=== PATIENT | female | born 1990 | race Caucasian/White ===

== ENCOUNTER 2023-04-19 05:49 | Emergency (ER) | payer OTHER, SELFPAY ==
[2023-04-19 05:50] VITALS: BMI 25.7
[2023-04-19 05:51] VITALS: BP 130/88
--- NOTE | 2023-04-19 07:05 | ED.GENMED ---
History of Present Illness
General
Chief Complaint: Abdominal Symptoms
Source: patient
Time Seen by Provider: 04/19/23 06:47
Travel History
Have you had any contact with someone who has COVID-19?: No
Do you have any symptoms of coronavirus? Fever > 100 degrees, chills, cough, shortness of breath, sore throat, loss of taste or smell, muscle aches, or headache?: No
History of Present Illness
History of Present Illness:
32-year-old female presents to the emergency room complaining nausea vomiting and diarrhea. Patient is 10 weeks . She has been experiencing nausea and vomiting throughout her but over the past 24 hours symptoms have become
significant. She has been unable to tolerate any oral intake. She has had decreased urination. No fever or chills. She does not have any medication at home to help with her symptoms.
Phy Exam
Physical Exam
Physical Exam:
General: Awake, Alert, Oriented X3. No acute distress.
Vitals: Tachycardic
Head: Atraumatic
Eyes: Pupils equal, EOMI
Throat: Airway intact, no exudates, dry mucosa
Neck: Trachea midline
Lungs: Clear and equal b/l
Heart: Regular rate, no murmurs
Abd: Soft, Nontender, No pulsatile mass
Neuro: Nonfocal
Skin: Warm, dry, no rash
Extremities: pulses equal b/l, no edema
Course
Orders/Labs/Results
Orders:
Orders
04/19/23 06:59
Urinalysis Reflex To Culture Urgent
Date Specimen was Collected: 04/19/23
Time Specimen was Collected: 07:10
0.9% Sodium Chloride 1000 ml [Nss] 1,000 ml IV BOLUS
Diphenhydramine [Benadryl] 25 mg IV NOW STA
Prochlorperazine [Compazine] 10 mg IV NOW STA
04/19/23 07:26
Amylase Urgent
Complete Blood Count/With Diff Urgent
Comprehensive Metabolic Panel Urgent
Lipase Urgent
04/19/23 08:22
Add On- LAB Urgent
Tests Added?: cmp
04/19/23 09:15
Mag Hydrox/Al Hydrox/Simeth [Maalox] 30 ml Phenobarb/Hyoscy/Atropine/Scop [] 10 ml PO NOW
Ondansetron Injectable [Zofran] 4 mg IV NOW STA
04/19/23 09:21
Mag Hydrox/Al Hydrox/Simeth [Maalox] 30 ml .ROUTE .STK-MED ONE
Phenobarb/Hyoscy/Atropine/Scop [] 10 ml .ROUTE .STK-MED ONE
Abnormal Lab Results
04/19/23
07:26
WBC 15.2 H 10^3/uL
(4.8-10.8)
MCH 31.4 H pg
(27.0-31.0)
Abs Immat Gran (auto) 0.1 H 10^3/uL
(0-0.05)
Absolute Neuts (auto) 14.0 H 10^3/uL
(1.4-6.5)
Absolute Lymphs (auto) 0.9 L 10^3/uL
(1.2-3.4)
Neutrophils % 91.6 H %
(42.2-75.2)
Lymphocytes % 5.6 L %
(20.5-51.1)
Potassium 3.4 L mmol/L
(3.5-5.1)
Carbon Dioxide 15 L mmol/L
(22-30)
Creatinine 0.4 L mg/dL
(0.6-1.0)
Glucose 173 H mg/dl
(70-99)
Calcium 10.5 H mg/dl
(8.4-10.2)
Albumin 5.1 H g/dl
(3.5-5.0)
04/19/23 07:26
04/19/23 07:26
Vital Signs
Initial and Last Documented VS:
Initial Vital Signs
Temp Pulse Resp BP Pulse Ox
97.4 F 100 22 130/88 100
04/19/23 05:51 04/19/23 05:51 04/19/23 05:51 04/19/23 05:51 04/19/23 05:51
Last Documented Vital Signs
Temp Pulse Resp BP Pulse Ox
97.4 F 73 19 93/59 97
04/19/23 05:51 04/19/23 10:00 04/19/23 10:00 04/19/23 10:00 04/19/23 10:00
MDM/Problems Addressed
Differential Diagnosis Includes:
Dehydration, electrolyte abnormality, cholecystitis, hyperemesis
MDM/Problems Addressed:
Patient has mildly elevated white count which is nonspecific. Moderately low bicarb. Patient feeling better after IV fluids and antiemetics. Patient will be discharged with prescription for antiemetics. Follow-up with [employer] [employer].
*Pulse Oximetry
Patient hypoxic: no
*Critical Care Note
Total Time (30-74mins, 75-104mins- exclusive of procedures): Not Applicable
Patient Management
Social determinants of health affecting care: Strong social support
ED Attending Note
-
Portions of this chart may have been created with voice recognition software.� Occasional wrong word or��sound alike� substitutions may have occurred due to the inherent limitations of voice recognition software.
Discharge Plan
Departure
Patient Disposition: Home (Routine Discharge)
Date of Disposition: 04/19/23
Time of Disposition: 10:23
Patient with high blood pressure during this ER visit?: No
Condition: Good
Discharge Problem:
Hyperemesis gravidarum, Dehydration
Instructions: Hyperemesis Gravidarum (DC)
Prescriptions:
New
prochlorperazine maleate [Compazine] 10 mg tablet
10 mg PO Q8H PRN (Reason: nausea and vomiting) Qty: 20 0RF
Referrals:
Shannan Fernandez CRNP [Family Provider] -
Rupa Kaiser MD [Active] -
Interventions
Interventions:
*Risk Screen - Suicide Last Done: 04/19/23 05:51
*General Assessment Last Done: 04/19/23 07:31
*Neglect/Abuse Screening Last Done: 04/19/23 05:51
*ED COVID-19 Vaccine History Last Done: 04/19/23 07:31
*Nursing Disposition Last Done: 04/19/23 10:37
WS-Xuyqoh-Hxcdmotdty Assessment Last Done: 04/19/23 08:47
ED-Female Genitourinary Assessment Last Done: 04/19/23 08:47
Discharge Date and Time
Discharge Date/Time: 04/19/23 10:38
[2023-04-19 07:22] VITALS: BP 115/77
[2023-04-19] MEDS: COMPAZINE 10 MG IV (07:28)
[2023-04-19] MEDS: NSS 1000 IV (07:29)
[2023-04-19] MEDS: BENADRYL 25 MG IV (07:29)
[2023-04-19 07:58] LABS: % Basophils 0.2 % (0-2); % Immature Granulocytes 0.5 % (0-0.5); % Lymphocytes 5.6 % (20.5-51.1); % Monocytes 2.1 % (1.7-9.3); % Neutrophils 91.6 % (42.2-75.2); Absolute Immature Granulocytes 0.1 10^3/uL (0-0.05); Absolute Lymphocytes 0.9 10^3/uL (1.2-3.4); Absolute Monocytes 0.3 10^3/uL (0.1-0.6); Hematocrit 42.1 % (37.0-47.0); Hemoglobin 15.4 g/dL (12.0-16.0); Mean Corp Hgb Conc. 36.6 g/dL (33.0-37.0); Mean Corpuscular Hgb 31.4 pg (27.0-31.0); Mean Corpuscular Volume 85.7 fL (81.0-99.0); Mean Platelet Volume 9.3 fL (7.4-10.4); Nucleated Red Blood Cells % 0 %; Platelet Count 306 10^3/uL (130-400); Red Blood Cell Count 4.91 10^6/uL (4.20-5.40); Red Cell Dist. Width 12.1 % (11.5-14.5); White Blood Cell Count 15.2 10^3/uL (4.8-10.8)
[2023-04-19 08:00] VITALS: BP 107/70
[2023-04-19 08:12] LABS: Amylase 44 U/L (30-110); Lipase 41 U/L (23-300)
[2023-04-19 08:42] LABS: ALT (SGPT) 30 U/L (0-35); AST (SGOT) 30 U/L (14-36); Albumin 5.1 g/dl (3.5-5.0); Alkaline Phosphatase 65 U/L (38-126); Blood Urea Nitrogen 12 mg/dl (7-17); Calcium 10.5 mg/dl (8.4-10.2); Carbon Dioxide 15 mmol/L (22-30); Chloride 105 mmol/L (98-107); Estimated Creatinine Clearance 105 ml/min; Glucose 173 mg/dl (70-99); Potassium 3.4 mmol/L (3.5-5.1); Sodium 137 mmol/L (135-145); Total Bilirubin 0.8 mg/dl (0.2-1.3); Total Protein 8.1 g/dl (6.3-8.2); eGFR > 60.00
[2023-04-19 09:00] VITALS: BP 103/70
[2023-04-19] MEDS: MAALOX 40 PO (09:32)
[2023-04-19] MEDS: ZOFRAN 4 MG IV (09:34)
[2023-04-19 10:00] VITALS: BP 93/59
== END 2023-04-19 10:38 | disposition home or self-care (01) ==
LOC: EMR 05:49
PROVIDERS: EMERGENCY PHYSICIAN Emergency Medicine; FAMILY PHYSICIAN Nurse Practitioner Adult Health
DX: O21.1 Hyperemesis gravidarum with metabolic disturbance (principal); E86.0 Dehydration; O99.891 Other specified diseases and conditions complicating pregnancy; O99.281 Endocrine, nutritional and metabolic diseases complicating pregnancy, first trimester; Z3A.10 10 weeks gestation of pregnancy
CPT/HCPCS: 99284; 96374; 96375 ×2; 96361; 80053; 82150; 83690; 85025

== ENCOUNTER 2023-05-23 19:31 | Emergency (ER) | payer OTHER, SELFPAY ==
[2023-05-23 19:40] VITALS: BP 122/80
[2023-05-23 20:02] LABS: Hematocrit 38.9 % (37.0-47.0); Hemoglobin 14.1 g/dL (12.0-16.0); Mean Corp Hgb Conc. 36.2 g/dL (33.0-37.0); Mean Corpuscular Volume 85.5 fL (81.0-99.0); Platelet Count 268 10^3/uL (130-400); Red Blood Cell Count 4.55 10^6/uL (4.20-5.40); Red Cell Dist. Width 12.4 % (11.5-14.5); White Blood Cell Count 16.8 10^3/uL (4.8-10.8)
[2023-05-23 20:26] LABS: Blood Urea Nitrogen 9 mg/dl (7-17); Carbon Dioxide 17 mmol/L (22-30); Chloride 104 mmol/L (98-107); Glucose 141 mg/dl (70-99); Potassium 3.7 mmol/L (3.5-5.1); Sodium 135 mmol/L (135-145); eGFR > 60.00
[2023-05-23 21:09] VITALS: BMI 27.0
[2023-05-23] MEDS: ZOFRAN 4 MG IV ×2 (21:13→23:56)
[2023-05-23] MEDS: NSS 1000 IV (21:14)
--- NOTE | 2023-05-23 21:27 | ED.GENMED ---
History of Present Illness
<Keenan Foreman MD - Last Filed: 05/23/23 23:58>
General
Chief Complaint: Abdominal Symptoms
Source: patient and spouse
Exam Limitations: none
Time Seen by Provider: 05/23/23 21:04
Nursing documentation reviewed up to this point in time: agreed with
Travel History
Have you had any contact with someone who has COVID-19?: No
Do you have any symptoms of coronavirus? Fever > 100 degrees, chills, cough, shortness of breath, sore throat, loss of taste or smell, muscle aches, or headache?: No
History of Present Illness
History of Present Illness:
Patient is G1, P0, approximately 14 weeks , presents ED secondary to recurrent continual nausea and vomiting since this morning. Patient unfortunately has had multiple similar episodes requiring evaluation and treatment in ED recently.
Denies fever or chills. Denies chest pain or shortness of breath. Denies abdominal pain. Denies diarrhea. Denies sick contact. Denies recent travel. Patient reports having had normal ultrasound 2 weeks ago.
Review of Systems
<Keenan Foreman MD - Last Filed: 05/23/23 23:58>
Review of Systems
Allergies reviewed?: Yes
All Other Systems: ROS reviewed and negative except as documented in HPI and ROS
Constitutional: Reports no symptoms
EENT: Reports no symptoms
Respiratory: Reports no symptoms
Cardiac: Reports no symptoms
ABD/GI: Reports nausea and vomiting; Denies abdominal pain or diarrhea
: Reports no symptoms
Musculoskeletal: Reports no symptoms
Skin: Reports no symptoms
Neurological: Reports no symptoms
Phy Exam
<Keenan Foreman MD - Last Filed: 05/23/23 23:58>
Physical Exam
Physical Exam:
Physical Exam
General: mild distress, not acutely ill. afebrile
Head: nc/at. eomi
Neck: supple. normal range of motion.
Heart: s1/s2 regular rate and rhythm, no murmur. equal radial pulses.
Lungs: no acute respiratory distress. clear bilaterally
Abdomen: normal bowel sounds. not tender.
Neuro: alert and oriented. no focal neurological deficits
Skin: no rash
Psychiatric: well kept. interactive and cooperative
Extremities: no edema. no calf tenderness.
Course
<Keenan Foreman MD - Last Filed: 05/23/23 23:58>
Orders/Labs/Results
Orders:
Orders
05/23/23 19:48
Basic Metabolic Panel Urgent
Complete Blood Count/No Diff Urgent
HCG,SERUM [Beta HCG Quantitative] Urgent
Is this a screen?: No
05/23/23 21:07
0.9% Sodium Chloride 1000 ml [Nss] 1,000 ml IV BOLUS
Ondansetron Injectable [Zofran] 4 mg IV NOW STA
05/23/23 23:22
0.9% Sodium Chloride 500 ml [Nss] 500 ml IV BOLUS
Ondansetron Injectable [Zofran] 4 mg IV NOW STA
05/24/23 00:01
Mag Hydrox/Al Hydrox/Simeth [Maalox] 30 ml .ROUTE .STK-MED ONE
05/24/23 00:09
Mag Hydrox/Al Hydrox/Simeth [Maalox] 30 ml PO NOW STA
05/24/23 01:12
Diphenhydramine [Benadryl] 25 mg IV NOW STA
Metoclopramide [Reglan] 10 mg IV NOW STA
Abnormal Lab Results
05/23/23
19:48
WBC 16.8 H 10^3/uL
(4.8-10.8)
Carbon Dioxide 17 L mmol/L
(22-30)
Creatinine 0.4 L mg/dL
(0.6-1.0)
Glucose 141 H mg/dl
(70-99)
05/23/23 19:48
05/23/23 19:48
Vital Signs
Initial and Last Documented VS:
Initial Vital Signs
Temp Pulse Resp BP Pulse Ox
99.2 F 104 22 122/80 99
05/23/23 19:40 05/23/23 19:40 05/23/23 19:40 05/23/23 19:40 05/23/23 19:40
Last Documented Vital Signs
Temp Pulse Resp BP Pulse Ox
99.2 F 90 17 107/58 96
05/23/23 19:40 05/24/23 02:40 05/24/23 02:40 05/24/23 02:03 05/24/23 02:45
<Kevin Peralta, - Last Filed: 05/24/23 05:07>
Orders/Labs/Results
Orders:
Orders
05/23/23 19:48
Basic Metabolic Panel Urgent
Complete Blood Count/No Diff Urgent
HCG,SERUM [Beta HCG Quantitative] Urgent
Is this a screen?: No
05/23/23 21:07
0.9% Sodium Chloride 1000 ml [Nss] 1,000 ml IV BOLUS
Ondansetron Injectable [Zofran] 4 mg IV NOW STA
05/23/23 23:22
0.9% Sodium Chloride 500 ml [Nss] 500 ml IV BOLUS
Ondansetron Injectable [Zofran] 4 mg IV NOW STA
05/24/23 00:01
Mag Hydrox/Al Hydrox/Simeth [Maalox] 30 ml .ROUTE .STK-MED ONE
05/24/23 00:09
Mag Hydrox/Al Hydrox/Simeth [Maalox] 30 ml PO NOW STA
05/24/23 01:12
Diphenhydramine [Benadryl] 25 mg IV NOW STA
Metoclopramide [Reglan] 10 mg IV NOW STA
Abnormal Lab Results
05/23/23
19:48
WBC 16.8 H 10^3/uL
(4.8-10.8)
Carbon Dioxide 17 L mmol/L
(22-30)
Creatinine 0.4 L mg/dL
(0.6-1.0)
Glucose 141 H mg/dl
(70-99)
05/23/23 19:48
05/23/23 19:48
Vital Signs
Initial and Last Documented VS:
Initial Vital Signs
Temp Pulse Resp BP Pulse Ox
99.2 F 104 22 122/80 99
05/23/23 19:40 05/23/23 19:40 05/23/23 19:40 05/23/23 19:40 05/23/23 19:40
Last Documented Vital Signs
Temp Pulse Resp BP Pulse Ox
99.2 F 90 17 107/58 96
05/23/23 19:40 05/24/23 02:40 05/24/23 02:40 05/24/23 02:03 05/24/23 02:45
<Kevin Peralta DO - Last Filed: 05/24/23 05:07>
*Critical Care Note
Total Time (30-74mins, 75-104mins- exclusive of procedures): Not Applicable
<Kevin Peralta DO - Last Filed: 05/24/23 05:07>
Update Note
Update Note:
Patient received in signout. 32-year-old with hyperemesis gravidarum. On reassessment the patient was still nauseous but after Reglan now feels much better. Okay for discharge. Will prescribe Reglan for home but advise close follow-up.
ED Attending Note
<Keenan Foreman MD - Last Filed: 05/23/23 23:58>
-
Portions of this chart may have been created with voice recognition software.� Occasional wrong word or��sound alike� substitutions may have occurred due to the inherent limitations of voice recognition software.
Discharge Plan
Departure
Patient Disposition: Home (Routine Discharge)
Date of Disposition: 05/24/23
Time of Disposition: 02:51
Patient with high blood pressure during this ER visit?: No
Discharge Problem:
Hyperemesis gravidarum
Instructions: Hyperemesis Gravidarum (DC)
Prescriptions:
New
metoclopramide HCl [Reglan] 10 mg tablet
10 mg PO Q8HPRN PRN (Reason: nausea and vomiting) Qty: 14 0RF
No Action
prochlorperazine maleate [Compazine] 10 mg tablet
10 mg PO Q8H PRN (Reason: nausea and vomiting) Qty: 20 0RF
Referrals:
NONE,* [Active] -
Activity Restrictions/Additional Instructions:
Return to immediately for intractable vomiting, abdominal pain, vaginal bleeding, fevers or any other concerns. Please see your doctor in the next 3 to 4 days for follow-up and reevaluation.
Interventions
Interventions:
*Risk Screen - Suicide Last Done: 05/23/23 19:40
*General Assessment Last Done: 05/23/23 21:09
*Neglect/Abuse Screening Last Done: 05/23/23 19:40
ED- Fall Risk Assessment Last Done: 05/23/23 21:17
*ED COVID-19 Vaccine History Last Done: 05/23/23 21:09
*Nursing Disposition Last Done: 05/24/23 03:00
LP-Aszkbh-Cihdqungxt Assessment Last Done: 05/23/23 23:55
ED-Female Genitourinary Assessment Last Done: 05/23/23 21:17
Discharge Date and Time
Discharge Date/Time: 05/24/23 03:00
[2023-05-23 22:00] VITALS: BP 117/79
[2023-05-23 23:00] VITALS: BP 121/60
[2023-05-23] MEDS: NSS 500 IV (23:55)
[2023-05-24] VITALS: BP 123/79
[2023-05-24] MEDS: MAALOX 30 ML PO (00:09)
[2023-05-24 01:00] VITALS: BP 124/93
[2023-05-24] MEDS: REGLAN 10 MG IV (01:30)
[2023-05-24] MEDS: BENADRYL 25 MG IV (01:30)
[2023-05-24 02:03] VITALS: BP 107/58
== END 2023-05-24 03:00 | disposition home or self-care (01) ==
LOC: EMR 19:31
PROVIDERS: Emergency Medicine; EMERGENCY PHYSICIAN Emergency Medicine; FAMILY PHYSICIAN Nurse Practitioner Adult Health
DX: O21.0 Mild hyperemesis gravidarum (principal); Z3A.14 14 weeks gestation of pregnancy
CPT/HCPCS: 99284; 96374; 96375 ×2; 96361 ×2; 96376; 80048; 84702; 85027

== ENCOUNTER 2023-06-15 19:38 | Emergency (ER) | payer OTHER, SELFPAY ==
[2023-06-15 19:40] VITALS: BP 137/88
--- NOTE | 2023-06-15 20:17 | ED.GENMED ---
History of Present Illness
General
Chief Complaint: Abdominal Symptoms
Source: patient, records and spouse
Exam Limitations: none
Time Seen by Provider: 06/15/23 20:12
Nursing documentation reviewed up to this point in time: agreed with
Travel History
Have you had any contact with someone who has COVID-19?: No
Do you have any symptoms of coronavirus? Fever > 100 degrees, chills, cough, shortness of breath, sore throat, loss of taste or smell, muscle aches, or headache?: No
History of Present Illness
History of Present Illness:
Patient is a 32-year-old 1 para 0 female with an estimated date of confinement of November 14 who presents with nausea and vomiting. Patient is intermittently since the beginning of her and again started this morning. Patient has
been unable to keep anything down and has had multiple episodes of emesis. Patient denies any pain. Patient denies fever, chills, nasal congestion, sore throat or cough. Patient denies any abdominal pain or diarrhea. Patient denies any vaginal
bleeding or vaginal fluid. Patient did take multiple medications without improvement.
Past History
Past History
ED Past Medical History: Other (Hyperemesis gravidarum)
Social History
Tobacco: Non-smoker
Review of Systems
Review of Systems
All Other Systems: ROS reviewed and negative except as documented in HPI and ROS
Constitutional: Reports fatigue; Denies fever or chills
EENT: Reports no symptoms
Respiratory: Reports no symptoms
Cardiac: Reports no symptoms
ABD/GI: Reports nausea, vomiting and anorexia; Denies abdominal pain or diarrhea
: Reports no symptoms
Musculoskeletal: Reports no symptoms
Skin: Reports no symptoms
Neurological: Reports no symptoms
Hematologic/Lymphatic: Reports no symptoms
Phy Exam
Physical Exam
Physical Exam:
Physical Exam
General: mild to moderate distress, alert and appropriate, well nourished, dry mucous membranes
HENT: Normocephalic, supple with no lymphadenopathy, no thyromegaly
Eyes: Clear sclera, conjuctiva without injection
Heart: Regular rhythm and tachycardic rate. No S3, S4. No murmur.
Lungs: No respiratory distress, no stridor, lung sounds clear and equal bilaterallyr
Abdomen: Soft, nontender, no organomegaly, no CVA tenderness, BS good
Neuro: Alert and oriented x 3, CN II - XII intact, no motor focality, no cerebellar dysfunction
Skin: no rash
Psychiatric: well kept. interactive and cooperative
Extremities: No edema, cyanosis, tenderness
Scores
Heart Failure Risk
Heart Failure Risk Score: Not Applicable
Heart Score for Chest Pain Patients
STEMI patient?: Not applicable
Withdrawal Assessment of Alcohol
Withdrawal Assessment Completed?: Not applicable
Course
Orders/Labs/Results
Orders:
Orders
06/15/23 20:16
Ondansetron Injectable [Zofran] 4 mg IV NOW STA
06/15/23 20:17
Lactated Ringers [Lr] 1,000 ml IV BOLUS
06/15/23 20:37
Complete Blood Count/With Diff Urgent
Comprehensive Metabolic Panel Urgent
06/15/23 20:51
Urinalysis Reflex To Culture Urgent
Date Specimen was Collected: 06/15/23
Time Specimen was Collected: 20:26
Urine Microscopic Reflex Cult Urgent
06/15/23 21:24
Diphenhydramine [Benadryl] 12.5 mg IV NOW STA
Prochlorperazine [Compazine] 10 mg IV NOW STA
06/15/23 21:42
Lactated Ringers [Lr] 1,000 ml IV BOLUS
06/15/23 22:35
Mag Hydrox/Al Hydrox/Simeth [Maalox] 30 ml PO NOW STA
Abnormal Lab Results
06/15/23 06/15/23
20:37 20:51
WBC 17.8 H 10^3/uL
(4.8-10.8)
Hct 36.3 L %
(37.0-47.0)
MCH 31.2 H pg
(27.0-31.0)
MCHC 37.5 H g/dL
(33.0-37.0)
Abs Immat Gran (auto) 0.1 H 10^3/uL
(0-0.05)
Absolute Neuts (auto) 16.0 H 10^3/uL
(1.4-6.5)
Immature Gran % 0.7 H %
(0-0.5)
Neutrophils % 89.7 H %
(42.2-75.2)
Lymphocytes % 7.1 L %
(20.5-51.1)
Carbon Dioxide 17 L mmol/L
(22-30)
Creatinine 0.4 L mg/dL
(0.6-1.0)
Glucose 149 H mg/dl
(70-99)
Calcium 10.6 H mg/dl
(8.4-10.2)
Urine Ketones 3+ A
(Negative)
Leukocyte Esterase Rfl Trace A
(Negative)
Urine Glucose Trace A
(Negative)
06/15/23 20:37
06/15/23 20:37
Vital Signs
Initial and Last Documented VS:
Initial Vital Signs
Temp Pulse Resp BP Pulse Ox
98.7 F 119 20 137/88 97
06/15/23 19:40 06/15/23 19:40 06/15/23 19:40 06/15/23 19:40 06/15/23 19:40
Last Documented Vital Signs
Temp Pulse Resp BP Pulse Ox
98.7 F 89 18 125/83 99
06/15/23 19:40 06/15/23 23:15 06/15/23 23:15 06/15/23 23:15 06/15/23 23:15
*Radiology
Radiology exam reviewed: other (na)
*Pulse Oximetry
Patient hypoxic: no
*EKG
Interpreted by ED Provider?: NA
*Chiropractic Neurologist Interpretation
Rate: Chiropractic Neurologist- N/A
*Critical Care Note
Total Time (30-74mins, 75-104mins- exclusive of procedures): Not Applicable
Update Note
Update Note:
Patient able to take by mouth and has had 2 L of fluid. Patient be given prescription for Phenergan suppositories.
ED Attending Note
-
Portions of this chart may have been created with voice recognition software.� Occasional wrong word or��sound alike� substitutions may have occurred due to the inherent limitations of voice recognition software.
Discharge Plan
Departure
Patient Disposition: Home (Routine Discharge)
Date of Disposition: 06/15/23
Time of Disposition: 23:17
Patient with high blood pressure during this ER visit?: No
Condition: Fair
Covid-19: Not Applicable
Discharge Problem:
Hyperemesis gravidarum, Acute dehydration
Instructions: Hyperemesis Gravidarum (DC), [place] Diet, Nausea and Vomiting, Adult (DC)
Prescriptions:
New
promethazine 25 mg suppository
25 mg NV Q6H PRN (Reason: nausea and vomiting) Qty: 12 0RF
No Action
prochlorperazine maleate [Compazine] 10 mg tablet
10 mg PO Q8H PRN (Reason: nausea and vomiting) Qty: 20 0RF
metoclopramide HCl [Reglan] 10 mg tablet
10 mg PO Q8HPRN PRN (Reason: nausea and vomiting) Qty: 14 0RF
Referrals:
Shannan Fernandez CRNP [Family Provider] -
Interventions
Interventions:
*Risk Screen - Suicide Last Done: 06/15/23 19:40
*General Assessment Last Done: 06/15/23 19:40
*Neglect/Abuse Screening Last Done: 06/15/23 20:36
ED- Fall Risk Assessment Last Done: 06/15/23 20:36
*ED COVID-19 Vaccine History Last Done: 06/15/23 19:43
EX-Qrgiet-Mhngkdksvp Assessment Last Done: 06/15/23 20:36
Discharge Date and Time
Print Language: CITIZEN OF [place]
[2023-06-15 20:35] VITALS: BMI 27.3
[2023-06-15] MEDS: LR 1000 IV ×2 (20:37→21:54)
[2023-06-15] MEDS: ZOFRAN 4 MG IV (20:37)
[2023-06-15 20:47] LABS: % Basophils 0.2 % (0-2); % Immature Granulocytes 0.7 % (0-0.5); % Lymphocytes 7.1 % (20.5-51.1); % Monocytes 2.3 % (1.7-9.3); % Neutrophils 89.7 % (42.2-75.2); Absolute Immature Granulocytes 0.1 10^3/uL (0-0.05); Absolute Lymphocytes 1.3 10^3/uL (1.2-3.4); Absolute Monocytes 0.4 10^3/uL (0.1-0.6); Hematocrit 36.3 % (37.0-47.0); Hemoglobin 13.6 g/dL (12.0-16.0); Mean Corp Hgb Conc. 37.5 g/dL (33.0-37.0); Mean Corpuscular Hgb 31.2 pg (27.0-31.0); Mean Corpuscular Volume 83.3 fL (81.0-99.0); Mean Platelet Volume 8.9 fL (7.4-10.4); Nucleated Red Blood Cells % 0 %; Platelet Count 281 10^3/uL (130-400); Red Blood Cell Count 4.36 10^6/uL (4.20-5.40); Red Cell Dist. Width 12.4 % (11.5-14.5); White Blood Cell Count 17.8 10^3/uL (4.8-10.8)
[2023-06-15 21:01] LABS: ALT (SGPT) 27 U/L (0-35); AST (SGOT) 29 U/L (14-36); Albumin 4.8 g/dl (3.5-5.0); Alkaline Phosphatase 58 U/L (38-126); Blood Urea Nitrogen 8 mg/dl (7-17); Calcium 10.6 mg/dl (8.4-10.2); Carbon Dioxide 17 mmol/L (22-30); Chloride 101 mmol/L (98-107); Estimated Creatinine Clearance 120 ml/min; Glucose 149 mg/dl (70-99); Potassium 3.7 mmol/L (3.5-5.1); Sodium 136 mmol/L (135-145); Total Bilirubin 0.6 mg/dl (0.2-1.3); Total Protein 7.7 g/dl (6.3-8.2); eGFR > 60.00
[2023-06-15 21:24] LABS: Urine Albumin Trace (Neg - Trace); Urine Bilirubin Negative (Negative); Urine Character Clear (Clear); Urine Color Yellow; Urine Glucose Trace (Negative); Urine Ketone 3+ (Negative); Urine Leukocyte Trace (Negative); Urine Nitrite Negative (Negative); Urine Occult Blood Negative (Negative); Urine Specific Gravity 1.025 (<1.030); Urine Urobilinogen Negative (Neg - 1+)
[2023-06-15] MEDS: BENADRYL 12.5 MG IV (21:30)
[2023-06-15] MEDS: COMPAZINE 10 MG IV (21:34)
[2023-06-15 21:38] LABS: Urine Squamous Cell >30 /LPF (Few)
[2023-06-15 21:39] LABS: Urine Red Blood Cell None Seen /HPF (0-2); Urine White Cell 0-2 /HPF (0-5)
[2023-06-15 21:43] VITALS: BP 122/77
[2023-06-15] MEDS: MAALOX 30 ML PO (22:52)
[2023-06-15 23:15] VITALS: BP 125/83
== END 2023-06-15 23:23 | disposition home or self-care (01) ==
LOC: EMR 19:38
PROVIDERS: EMERGENCY PHYSICIAN Emergency Medicine; FAMILY PHYSICIAN Nurse Practitioner Adult Health
DX: O21.0 Mild hyperemesis gravidarum (principal); O99.891 Other specified diseases and conditions complicating pregnancy; E86.0 Dehydration
CPT/HCPCS: 99283; 96374; 96375; 96361; 80053; 81003; 81015; 85025

== ENCOUNTER 2023-06-27 06:01 | Emergency (ER) | payer OTHER, SELFPAY ==
[2023-06-27 06:03] VITALS: BP 140/96
[2023-06-27 07:14] VITALS: BP 128/90
[2023-06-27 07:15] VITALS: BP 128/91
[2023-06-27] MEDS: NSS 1000 IV ×2 (07:21→12:07)
[2023-06-27] MEDS: REGLAN 10 MG IV (07:23)
[2023-06-27] MEDS: BENADRYL 25 MG IV (07:23)
[2023-06-27 07:54] LABS: % Basophils 0.1 % (0-2); % Eosinophils 0.1 % (0-6); % Immature Granulocytes 0.5 % (0-0.5); % Monocytes 1.1 % (1.7-9.3); % Neutrophils 91.2 % (42.2-75.2); Absolute Immature Granulocytes 0.1 10^3/uL (0-0.05); Absolute Monocytes 0.2 10^3/uL (0.1-0.6); Absolute Neutrophils 13.3 10^3/uL (1.4-6.5); Hematocrit 39.7 % (37.0-47.0); Hemoglobin 14.5 g/dL (12.0-16.0); Mean Corp Hgb Conc. 36.5 g/dL (33.0-37.0); Mean Corpuscular Hgb 31.5 pg (27.0-31.0); Mean Corpuscular Volume 86.1 fL (81.0-99.0); Mean Platelet Volume 9.2 fL (7.4-10.4); Nucleated Red Blood Cells % 0 %; Platelet Count 285 10^3/uL (130-400); Red Blood Cell Count 4.61 10^6/uL (4.20-5.40); Red Cell Dist. Width 12.4 % (11.5-14.5); White Blood Cell Count 14.6 10^3/uL (4.8-10.8)
[2023-06-27 08:13] LABS: ALT (SGPT) 41 U/L (0-35); AST (SGOT) 29 U/L (14-36); Alkaline Phosphatase 61 U/L (38-126); Blood Urea Nitrogen 9 mg/dl (7-17); Calcium 10.4 mg/dl (8.4-10.2); Carbon Dioxide 14 mmol/L (22-30); Chloride 102 mmol/L (98-107); Glucose 169 mg/dl (70-99); Potassium 3.3 mmol/L (3.5-5.1); Sodium 133 mmol/L (135-145); Total Bilirubin 0.8 mg/dl (0.2-1.3); Total Protein 7.9 g/dl (6.3-8.2); eGFR > 60.00
[2023-06-27] MEDS: CARAFATE SUSPENSION 1 GM PO (08:28)
[2023-06-27 08:36] LABS: TSH Reflex To Free T4 0.21 uIU/ml (0.47-4.68)
[2023-06-27 09:05] LABS: Free T4 1.27 ng/dl (0.78-2.19)
[2023-06-27 09:33] LABS: Urine Albumin Trace (Neg - Trace); Urine Bilirubin Negative (Negative); Urine Character Clear (Clear); Urine Color Yellow; Urine Glucose 3+ (Negative); Urine Ketone 3+ (Negative); Urine Leukocyte Negative (Negative); Urine Nitrite Negative (Negative); Urine Occult Blood Negative (Negative); Urine Urobilinogen Negative (Neg - 1+)
[2023-06-27] MEDS: PHENERGAN 25 MG RECTAL (12:06)
--- NOTE | 2023-06-27 13:05 | ED.GENMED ---
History of Present Illness
General
Chief Complaint: Chest Pain
Source: patient and significant other
Exam Limitations: none
Time Seen by Provider: 06/27/23 06:31
Travel History
Have you had any contact with someone who has COVID-19?: No
Do you have any symptoms of coronavirus? Fever > 100 degrees, chills, cough, shortness of breath, sore throat, loss of taste or smell, muscle aches, or headache?: No
History of Present Illness
History of Present Illness:
32-year-old female who is 20 weeks , G1, P0 who presents with persistent vomiting. Also feels like she is having some tightness in her chest and feeling a bit of anxiety in her chest. Patient states she is not sure if it is a little bit of
anxiety or is from the vomiting. Sent by OB for evaluation. The patient has had little bit of blood occasionally in the vomitus. no abd pain. no vaginal bleeding. no fevers. no sob. no pleuritic pain.
Past History
Past History
ED Past Medical History: Other (Hyperemesis gravidarum)
Social History
Tobacco: Non-smoker
Phy Exam
Physical Exam
Physical Exam:
CONSTITUTIONAL Patient alert and oriented to person, place and time. Well-appearing. Vital signs reviewed.
HEAD atraumatic, normocephalic.
EYES eyelids normal to inspection, Pupils equally round and reactive to light, Extraocular muscles intact, Conjunctiva normal, Sclera normal.
NECK normal range of motion, Trachea midline, no jugular venous distention.
RESPIRATORY CHEST No respiratory distress noted, Chest expansion equal, Bilateral breath sounds clear.
CARDIOVASCULAR regular rate and rhythm, Heart sounds normal.
ABDOMEN abdomen nontender, Bowel sounds normal. Gravid uterus at the umbilicus
BACK normal inspection, no obvious deformities
UPPER EXTREMITY range of motion normal, Motor strength normal, no cyanosis, no edema.
LOWER EXTREMITY range of motion normal, Motor strength normal, no cyanosis, no edema.
NEURO Speech normal, No focal motor deficits, [place] coma scale 15, Memory normal, Cranial Nerves intact to screening exam.
SKIN skin warm, dry, and normal in color.
PSYCHIATRIC patient oriented to person place and time, Normal affect.
Scores
Heart Score for Chest Pain Patients
STEMI patient?: Not applicable
Course
Orders/Labs/Results
Orders:
Orders
06/27/23 06:06
Electrocardiogram (*1) Urgent
Reason for Study: Chest Pain
EKG- Treatment ONCE
06/27/23 06:57
Diphenhydramine [Benadryl] 25 mg IV NOW STA
Metoclopramide [Reglan] 10 mg IV NOW STA
06/27/23 06:58
Sucralfate Suspension [Carafate Suspension] 1 gm PO NOW STA
06/27/23 07:20
CMP [Comprehensive Metabolic Panel] Urgent
Complete Blood Count/With Diff Urgent
Free T4 Urgent
TSH Reflex To Free T4 Urgent
06/27/23 07:21
0.9% Sodium Chloride 1000 ml [Nss] 1,000 ml IV BOLUS
06/27/23 09:26
Urinalysis Reflex To Culture Urgent
Date Specimen was Collected: 06/27/23
Time Specimen was Collected: 09:23
06/27/23 11:12
0.9% Sodium Chloride 1000 ml [Nss] 1,000 ml IV BOLUS
Promethazine [Phenergan] 25 mg RECTAL NOW STA
06/27/23 12:24
Calcium Carbonate Ex [Tums Ex (Extra Strength) Chewable] 5 tablet PO NOW STA
06/27/23 12:37
Potassium Chloride 10% Elixir [KCl Elixir] 40 meq PO NOW STA
Abnormal Lab Results
06/27/23 06/27/23
07:20 09:26
WBC 14.6 H 10^3/uL
(4.8-10.8)
MCH 31.5 H pg
(27.0-31.0)
Abs Immat Gran (auto) 0.1 H 10^3/uL
(0-0.05)
Absolute Neuts (auto) 13.3 H 10^3/uL
(1.4-6.5)
Absolute Lymphs (auto) 1.0 L 10^3/uL
(1.2-3.4)
Neutrophils % 91.2 H %
(42.2-75.2)
Lymphocytes % 7.0 L %
(20.5-51.1)
Monocytes % 1.1 L %
(1.7-9.3)
Sodium 133 L mmol/L
(135-145)
Potassium 3.3 L mmol/L
(3.5-5.1)
Carbon Dioxide 14 L* mmol/L
(22-30)
Creatinine 0.4 L mg/dL
(0.6-1.0)
Glucose 169 H mg/dl
(70-99)
Calcium 10.4 H mg/dl
(8.4-10.2)
ALT 41 H U/L
(0-35)
TSH (Reflex) 0.21 L uIU/ml
(0.47-4.68)
Urine Ketones 3+ A
(Negative)
Urine Glucose 3+ A
(Negative)
06/27/23 07:20
06/27/23 07:20
Vital Signs
Initial and Last Documented VS:
Initial Vital Signs
Temp Pulse Resp BP Pulse Ox
98 F 112 20 140/96 98
06/27/23 06:03 06/27/23 06:03 06/27/23 06:03 06/27/23 06:03 06/27/23 06:03
Last Documented Vital Signs
Temp Pulse Resp BP Pulse Ox
98 F 92 23 128/91 99
06/27/23 06:03 06/27/23 08:15 06/27/23 08:15 06/27/23 07:15 06/27/23 08:15
MDM/Problems Addressed
MDM/Problems Addressed:
Hyperemesis gravidarum, acidosis, esophagitis
*Pulse Oximetry
Patient hypoxic: no
*EKG
Interpreted by ED Provider?: Yes
Interpretation: normal
Rate: normal
Rhythm: sinus
QRS Pattern: normal QRS
*Home Based Assistant Interpretation
Rate: normal
Interpretation: normal
Rhythm: sinus
*Critical Care Note
Total Time (30-74mins, 75-104mins- exclusive of procedures): Not Applicable
Data Reviewed
Source: patient
Prescriptions/Medications Considered But Not Given:
Consider Zofran but patient states it does not work.
Further Testing Considered But Not Given:
Considered PE study but do not suspect pulmonary embolism.
Patient Management
Discussion with other providers: Field Clerk (Case discussed with Dr. Kaiser)
Escalation/DeEscalation of care consider admission/obs:
Patient seen by Dr. Kaiser. IV fluids given. Replace potassium. Does feel better. I suspect her chest symptoms are more related to esophagitis from vomiting. Okay for outpatient follow-up. Has a follow-up with OB this week
ED Attending Note
-
Portions of this chart may have been created with voice recognition software.� Occasional wrong word or��sound alike� substitutions may have occurred due to the inherent limitations of voice recognition software.
Discharge Plan
Departure
Patient Disposition: Home (Routine Discharge)
Date of Disposition: 06/27/23
Time of Disposition: 13:06
Patient with high blood pressure during this ER visit?: Yes
Discharge Problem:
Esophagitis, Hyperemesis gravidarum
Instructions: Hyperemesis Gravidarum (DC), Esophagitis
Prescriptions:
New
sucralfate [Carafate] 100 mg/mL suspension
10 ml PO QID Qty: 400 0RF
promethazine 25 mg suppository
25 mg LA Q6H PRN (Reason: nausea and vomiting) Qty: 15 0RF
No Action
metoclopramide HCl [Reglan] 10 mg tablet
10 mg PO Q8HPRN PRN (Reason: nausea and vomiting) Qty: 14 0RF
diphenhydramine HCl [Benadryl] 25 mg Capsule
25 mg PO DAILYPRN PRN (Reason: ALLERGIES)
28-800 mg-mcg Tablet
1 tab PO DAILY
promethazine 25 mg suppository
25 mg [place] Q6HPRN PRN (Reason: nausea and vomiting)
Unisom (doxylamine) 25 mg Tablet
25 mg PO HS PRN (Reason: SLEEP)
Referrals:
Shannan Fernandez CRNP [Family Provider] -
Activity Restrictions/Additional Instructions:
Please see your OB as planned this week
Return immediately for intractable vomiting, fevers, abdominal pain, vaginal bleeding or any other concerns.
Interventions
Interventions:
*Risk Screen - Suicide Last Done: 06/27/23 06:03
*General Assessment Last Done: 06/27/23 07:15
*Neglect/Abuse Screening Last Done: 06/27/23 06:03
ED- Fall Risk Assessment Last Done: 06/27/23 07:15
ED- Cardiac Assessment Last Done: 06/27/23 07:15
Discharge Date and Time
Print Language: KHMER
[2023-06-27] MEDS: TUMS EX (EXTRA STRENGTH) CHEWABLE 5 TABLET PO (13:29)
[2023-06-27] MEDS: KCL ELIXIR 40 MEQ PO (13:34)
== END 2023-06-27 14:15 | disposition home or self-care (01) ==
LOC: EMR 06:01
PROVIDERS: Student in an Organized Health Care Education/Training Program; EMERGENCY PHYSICIAN Emergency Medicine; FAMILY PHYSICIAN Nurse Practitioner Adult Health
DX: O21.1 Hyperemesis gravidarum with metabolic disturbance (principal); O26.892 Other specified pregnancy related conditions, second trimester; K20.90 Esophagitis, unspecified without bleeding; R03.0 Elevated blood-pressure reading, without diagnosis of hypertension; Z3A.20 20 weeks gestation of pregnancy
CPT/HCPCS: 99284; 96374; 96375; 96361 ×2; 80053; 81003; 84439; 84443; 85025; 93005

== ENCOUNTER 2023-06-28 16:35 | Observation (INO) | payer OTHER, SELFPAY ==
[2023-06-28 16:52] VITALS: BP 137/79; BMI 25.4
[2023-06-28] MEDS: LR 1000 IV ×2 (17:25→20:08)
[2023-06-28 17:29] LABS: % Basophils 0.2 % (0-2); % Eosinophils 0.1 % (0-6); % Immature Granulocytes 0.4 % (0-0.5); % Lymphocytes 11.2 % (20.5-51.1); % Monocytes 6.7 % (1.7-9.3); % Neutrophils 81.4 % (42.2-75.2); Absolute Immature Granulocytes 0.1 10^3/uL (0-0.05); Absolute Lymphocytes 2.2 10^3/uL (1.2-3.4); Absolute Monocytes 1.3 10^3/uL (0.1-0.6); Absolute Neutrophils 15.9 10^3/uL (1.4-6.5); Hematocrit 36.6 % (37.0-47.0); Hemoglobin 13.4 g/dL (12.0-16.0); Mean Corp Hgb Conc. 36.6 g/dL (33.0-37.0); Mean Corpuscular Hgb 31.1 pg (27.0-31.0); Mean Corpuscular Volume 84.9 fL (81.0-99.0); Mean Platelet Volume 9.2 fL (7.4-10.4); Nucleated Red Blood Cells % 0 %; Platelet Count 286 10^3/uL (130-400); Red Blood Cell Count 4.31 10^6/uL (4.20-5.40); Red Cell Dist. Width 12.3 % (11.5-14.5); White Blood Cell Count 19.5 10^3/uL (4.8-10.8)
[2023-06-28 17:39] LABS: ALT (SGPT) 51 U/L (0-35); AST (SGOT) 33 U/L (14-36); Albumin 4.8 g/dl (3.5-5.0); Alkaline Phosphatase 55 U/L (38-126); Blood Urea Nitrogen 11 mg/dl (7-17); Calcium 10.6 mg/dl (8.4-10.2); Carbon Dioxide 22 mmol/L (22-30); Chloride 96 mmol/L (98-107); Estimated Creatinine Clearance 105 ml/min; Glucose 121 mg/dl (70-99); Magnesium 1.9 mg/dl (1.6-2.3); Phosphorus 2.9 mg/dl (2.5-4.5); Potassium 2.9 mmol/L (3.5-5.1); Sodium 131 mmol/L (135-145); Total Bilirubin 0.9 mg/dl (0.2-1.3); Total Protein 7.7 g/dl (6.3-8.2); eGFR > 60.00
[2023-06-28] MEDS: REGLAN 10 MG IV (17:50)
[2023-06-28] MEDS: PEPCID 20 MG IV (18:16)
[2023-06-28] MEDS: CARAFATE SUSPENSION 1 GM PO ×2 (18:16→22:03)
[2023-06-28] MEDS: ATARAX 10 MG PO (19:09)
[2023-06-28] MEDS: MULTIVITAMIN 1011 ML IV (19:09)
[2023-06-28] MEDS: MULTIVITAMIN 1011 MG IV (19:09)
[2023-06-28] MEDS: BENADRYL IV (20:07)
[2023-06-28] MEDS: KCL 270 MEQ IV (20:08)
[2023-06-28] MEDS: NSS (PRESERVATIVE FREE) IV (20:29)
[2023-06-28 20:30] LABS: COVID-19 Antigen Negative (Negative)
[2023-06-28] MEDS: BENADRYL 25 MG IV (22:02)
[2023-06-29] MEDS: BENADRYL 25 MG IV ×4 (01:37→18:00)
[2023-06-29] MEDS: REGLAN 10 MG IV ×3 (01:38→18:02)
[2023-06-29 01:54] LABS: % Basophils 0.2 % (0-2); % Eosinophils 0.2 % (0-6); % Immature Granulocytes 0.4 % (0-0.5); % Lymphocytes 27.6 % (20.5-51.1); % Monocytes 8.9 % (1.7-9.3); % Neutrophils 62.7 % (42.2-75.2); Absolute Immature Granulocytes 0.1 10^3/uL (0-0.05); Absolute Lymphocytes 3.4 10^3/uL (1.2-3.4); Absolute Monocytes 1.1 10^3/uL (0.1-0.6); Absolute Neutrophils 7.7 10^3/uL (1.4-6.5); Hematocrit 29.3 % (37.0-47.0); Hemoglobin 10.9 g/dL (12.0-16.0); Mean Corp Hgb Conc. 37.2 g/dL (33.0-37.0); Mean Corpuscular Hgb 31.6 pg (27.0-31.0); Mean Corpuscular Volume 84.9 fL (81.0-99.0); Mean Platelet Volume 8.8 fL (7.4-10.4); Nucleated Red Blood Cells % 0 %; Platelet Count 205 10^3/uL (130-400); Red Blood Cell Count 3.45 10^6/uL (4.20-5.40); Red Cell Dist. Width 12.8 % (11.5-14.5); White Blood Cell Count 12.2 10^3/uL (4.8-10.8)
[2023-06-29 02:15] LABS: ALT (SGPT) 46 U/L (0-35); AST (SGOT) 30 U/L (14-36); Albumin 3.1 g/dl (3.5-5.0); Alkaline Phosphatase 38 U/L (38-126); Blood Urea Nitrogen 8 mg/dl (7-17); Calcium 9.3 mg/dl (8.4-10.2); Carbon Dioxide 26 mmol/L (22-30); Chloride 103 mmol/L (98-107); Estimated Creatinine Clearance 105 ml/min; Glucose 90 mg/dl (70-99); Phosphorus 3.4 mg/dl (2.5-4.5); Potassium 3.3 mmol/L (3.5-5.1); Sodium 135 mmol/L (135-145); Total Bilirubin 0.7 mg/dl (0.2-1.3); Total Protein 5.5 g/dl (6.3-8.2); eGFR > 60.00
[2023-06-29] MEDS: ATARAX 10 MG PO (06:25)
[2023-06-29] MEDS: LR 1000 IV ×2 (07:14→16:10)
[2023-06-29] MEDS: KCL 160 MEQ IV (08:42)
[2023-06-29] MEDS: CARAFATE SUSPENSION 1 GM PO ×4 (08:43→22:25)
[2023-06-29] MEDS: PEPCID 20 MG IV ×2 (08:44→20:20)
[2023-06-29] MEDS: NSS (PRESERVATIVE FREE) 8 ML IV ×2 (08:44→20:20)
[2023-06-29] MEDS: ZOLOFT 25 MG PO (08:50)
[2023-06-29] MEDS: ATIVAN 0.5 MG PO ×2 (12:59→23:38)
[2023-06-29] MEDS: BENADRYL IV (13:55)
[2023-06-29] MEDS: ZOFRAN 4 MG IV (14:04)
[2023-06-29] MEDS: KCL 270 MEQ IV (20:18)
[2023-06-30] MEDS: REGLAN 10 MG IV ×3 (01:30→17:46)
[2023-06-30 05:57] LABS: Hematocrit 28.9 % (37.0-47.0); Hemoglobin 10.5 g/dL (12.0-16.0); Mean Corp Hgb Conc. 36.3 g/dL (33.0-37.0); Mean Corpuscular Hgb 31.3 pg (27.0-31.0); Mean Corpuscular Volume 86.3 fL (81.0-99.0); Platelet Count 193 10^3/uL (130-400); Red Blood Cell Count 3.35 10^6/uL (4.20-5.40); Red Cell Dist. Width 12.7 % (11.5-14.5); White Blood Cell Count 10.5 10^3/uL (4.8-10.8)
[2023-06-30 06:33] LABS: Blood Urea Nitrogen 4 mg/dl (7-17); Calcium 8.5 mg/dl (8.4-10.2); Carbon Dioxide 23 mmol/L (22-30); Chloride 101 mmol/L (98-107); Estimated Creatinine Clearance 105 ml/min; Glucose 74 mg/dl (70-99); Potassium 2.9 mmol/L (3.5-5.1); Sodium 131 mmol/L (135-145); eGFR > 60.00
[2023-06-30] MEDS: NSS (PRESERVATIVE FREE) 8 ML IV ×2 (07:49→20:10)
[2023-06-30] MEDS: CARAFATE SUSPENSION 1 GM PO ×4 (07:49→22:10)
[2023-06-30] MEDS: PEPCID 20 MG IV ×2 (07:49→20:10)
[2023-06-30] MEDS: ZOLOFT 25 MG PO (07:50)
--- NOTE | 2023-06-30 14:32 | CM ---
CM received consult for home infusion
Pt with hyperemesis at 20 weeks gestation
Spoke with pt and her at bedside
Confirmed address and ins info
Offered choice regarding home infusion - no preference noted
[facility] unable to provide service, can provide IVF's, no antiemetics
[facility] - unable to provide service - staffing
[facility] - at capacity, unable to accept new pt
[facility] - out of service area
[facility] - [phone] spoke with Kirsten
Requested Rx, clinicals, labs, demographic info be faxed to Int[facility] at [phone]
Requested Rx from Dr Kaiser for planned IVF's/meds and nsg orders
Requested documents sent to [facility] at above fax #
CM will cont to follow
[2023-06-30] MEDS: ATIVAN 0.5 MG PO (22:16)
[2023-07-01] MEDS: REGLAN 10 MG IV ×2 (02:10→10:30)
[2023-07-01 06:43] LABS: Blood Urea Nitrogen 3 mg/dl (7-17); Calcium 8.7 mg/dl (8.4-10.2); Carbon Dioxide 24 mmol/L (22-30); Chloride 102 mmol/L (98-107); Estimated Creatinine Clearance 105 ml/min; Glucose 82 mg/dl (70-99); Potassium 3.1 mmol/L (3.5-5.1); Sodium 132 mmol/L (135-145); eGFR > 60.00
[2023-07-01] MEDS: NSS (PRESERVATIVE FREE) 8 ML IV (08:18)
[2023-07-01] MEDS: PEPCID 20 MG IV (08:18)
[2023-07-01] MEDS: CARAFATE SUSPENSION 1 GM PO ×2 (08:18→13:08)
[2023-07-01] MEDS: ZOLOFT 25 MG PO (08:19)
--- NOTE | 2023-07-01 09:36 | CM ---
Addendum entered by Suzie Flores 07/01/23 16:29:
Spoke with Ines at the [facility] [phone]
Requested Rx with infusion rate and length of infusion. Obtained from Dr Mccoy and faxed to infusion center
Scheduled pt for 8:30 AM on Monday 07/03 - Dr Mccoy and pt and aware
Addendum entered by Suzie Flores 07/01/23 14:59:
Received VM from Sydney Salinas at [facility] - pt has no out of network benefits, they are unable to take
Waiting to hear back from [facility]
Addendum entered by Suzie Flores 07/01/23 13:20:
IVF's changed, new Rx written by Dr Mccoy
Faxed updated Rx's and nursing orders to [facility]
Spoke with Ninfa at [facility]. Would be able to provide service to pt. Will fax info to make referral
Spoke with pt and - aware waiting to hear back from [facility]. Made aware of option of [facility].
Original Note:
Called [facility] to check on status of referral
Spoke with rep Sosa
Reports have received referral and its in process, requested CM to call after 2PM to check on status of referral
CM informed nursing staff and sent TT to Dr Mccoy to update on status
[2023-07-01] MEDS: KCL 40 MEQ PO (13:07)
--- NOTE | 2023-07-01 17:35 | CM ---
CM spoke with Dr Mccoy and updated her that patient has been schedule for [facility] on 07/03 at 8:[address]am. Dr. Mccoy will update patient.
== END 2023-07-01 18:00 | disposition home or self-care (01) ==
LOC: LDRP 16:35
PROVIDERS: Obstetrics & Gynecology; ADMITTING PHYSICIAN Obstetrics & Gynecology
DX: O21.1 Hyperemesis gravidarum with metabolic disturbance (principal); Z3A.20 20 weeks gestation of pregnancy; O99.342 Other mental disorders complicating pregnancy, second trimester; F41.9 Anxiety disorder, unspecified; R07.89 Other chest pain; R53.1 Weakness; R68.83 Chills (without fever); R63.4 Abnormal weight loss; F32.A Depression, unspecified; K92.0 Hematemesis
CPT/HCPCS: 36569; 76811; 80048; 80053; 83735; 84100; 84132; 85025; 85027; 87502; 87811; G0378

== ENCOUNTER 2023-07-15 09:09 | Outpatient (RCR) | payer OTHER, SELFPAY ==
[2023-07-04 08:42] VITALS: BP 122/79
[2023-07-04] MEDS: KCL 1030.20000000000005 ML IV (09:26)
[2023-07-04] MEDS: KCL 1030.20000000000005 MEQ IV (09:26)
[2023-07-04] MEDS: KCL 1030.20000000000005 MG IV (09:26)
[2023-07-04 10:28] LABS: Blood Urea Nitrogen 6 mg/dl (7-17); Calcium 9.3 mg/dl (8.4-10.2); Carbon Dioxide 20 mmol/L (22-30); Chloride 102 mmol/L (98-107); Glucose 82 mg/dl (70-99); Potassium 3.8 mmol/L (3.5-5.1); Sodium 130 mmol/L (135-145); eGFR > 60.00
[2023-07-05 09:21] VITALS: BP 128/64
[2023-07-05] MEDS: KCL 1030.20000000000005 MEQ IV (09:32)
[2023-07-05] MEDS: KCL 1030.20000000000005 MG IV (09:32)
[2023-07-05] MEDS: KCL 1030.20000000000005 ML IV (09:32)
[2023-07-06 09:38] VITALS: BP 108/70
[2023-07-06 10:09] LABS: Blood Urea Nitrogen 7 mg/dl (7-17); Calcium 9.5 mg/dl (8.4-10.2); Carbon Dioxide 20 mmol/L (22-30); Chloride 104 mmol/L (98-107); Glucose 93 mg/dl (70-99); Sodium 131 mmol/L (135-145); eGFR > 60.00
[2023-07-06] MEDS: KCL 1020.20000000000005 MG IV (12:02)
[2023-07-06] MEDS: KCL 1020.20000000000005 ML IV (12:02)
[2023-07-06] MEDS: KCL 1020.20000000000005 MEQ IV (12:02)
[2023-07-06 14:10] VITALS: BP 118/75
--- NOTE | 2023-07-06 14:34 | PTCARENOTE ---
Addendum entered by Reina Victoria RN 07/06/23 14:43:
Pt has follow up with Dr. Morales today.
Original Note:
1030- Reviewed patient lab results with Pharmacist. Potassium level 4.0, Dr Morales notified via tiger text. Potassium decreased to 20 meq IV. Aide Rivas ROLLER SKATER reviewed information and wrote for change in IV fluids today. Pt denies vomiting, 'has
waves of nausea', no diarrhea.
[2023-07-07 09:29] VITALS: BP 112/73
[2023-07-07] MEDS: KCL 1020.20000000000005 MG IV (09:44)
[2023-07-07] MEDS: KCL 1020.20000000000005 MEQ IV (09:44)
[2023-07-07] MEDS: KCL 1020.20000000000005 ML IV (09:44)
[2023-07-07] MEDS: REGLAN 10 MG IV (10:14)
[2023-07-08 08:54] VITALS: BP 115/75
[2023-07-08] MEDS: REGLAN 10 MG IV (08:57)
[2023-07-08 09:24] LABS: Blood Urea Nitrogen 5 mg/dl (7-17); Calcium 9.8 mg/dl (8.4-10.2); Carbon Dioxide 18 mmol/L (22-30); Chloride 104 mmol/L (98-107); Glucose 92 mg/dl (70-99); Sodium 130 mmol/L (135-145); eGFR > 60.00
[2023-07-08] MEDS: KCL 1020.20000000000005 MEQ IV (09:56)
[2023-07-08] MEDS: KCL 1020.20000000000005 MG IV (09:56)
[2023-07-08] MEDS: KCL 1020.20000000000005 ML IV (09:56)
[2023-07-11 10:00] VITALS: BP 109/63
[2023-07-11 11:16] LABS: Blood Urea Nitrogen 6 mg/dl (7-17); Calcium 9.2 mg/dl (8.4-10.2); Carbon Dioxide 19 mmol/L (22-30); Chloride 102 mmol/L (98-107); Glucose 90 mg/dl (70-99); Potassium 3.6 mmol/L (3.5-5.1); Sodium 129 mmol/L (135-145); eGFR > 60.00
[2023-07-11] MEDS: KCL 1020.20000000000005 MG IV (11:42)
[2023-07-11] MEDS: KCL 1020.20000000000005 ML IV (11:42)
[2023-07-11] MEDS: KCL 1020.20000000000005 MEQ IV (11:42)
[2023-07-13 09:26] VITALS: BP 112/53
[2023-07-13] MEDS: KCL 1020.20000000000005 ML IV (09:41)
[2023-07-13] MEDS: KCL 1020.20000000000005 MEQ IV (09:41)
[2023-07-13] MEDS: KCL 1020.20000000000005 MG IV (09:41)
[2023-07-15 09:21] VITALS: BP 112/72
[2023-07-15 10:09] LABS: Blood Urea Nitrogen 6 mg/dl (7-17); Calcium 9.6 mg/dl (8.4-10.2); Carbon Dioxide 23 mmol/L (22-30); Chloride 104 mmol/L (98-107); Glucose 97 mg/dl (70-99); Potassium 3.5 mmol/L (3.5-5.1); Sodium 131 mmol/L (135-145); eGFR > 60.00
[2023-07-15] MEDS: KCL 1020.20000000000005 MEQ IV (10:21)
[2023-07-15] MEDS: KCL 1020.20000000000005 MG IV (10:21)
[2023-07-15] MEDS: KCL 1020.20000000000005 ML IV (10:21)
== END 2023-07-18 09:47 | disposition home or self-care (01) ==
LOC: OID 09:09
PROVIDERS: Obstetrics & Gynecology; ATTENDING PHYSICIAN Nurse Practitioner Adult Health
DX: Z34.92 Encounter for supervision of normal pregnancy, unspecified, second trimester (principal); O21.1 Hyperemesis gravidarum with metabolic disturbance (principal); E86.0 Dehydration; R11.0 Nausea
CPT/HCPCS: 36415; 80048; 96365; 96366; 96375

== ENCOUNTER 2023-07-23 18:28 | Emergency (ER) | payer OTHER, SELFPAY ==
[2023-07-23 18:31] VITALS: BP 128/90
[2023-07-23 19:06] LABS: % Basophils 0.2 % (0-2); % Immature Granulocytes 0.8 % (0-0.5); % Lymphocytes 5.9 % (20.5-51.1); % Monocytes 1.6 % (1.7-9.3); % Neutrophils 91.5 % (42.2-75.2); Absolute Immature Granulocytes 0.2 10^3/uL (0-0.05); Absolute Lymphocytes 1.2 10^3/uL (1.2-3.4); Absolute Monocytes 0.3 10^3/uL (0.1-0.6); Absolute Neutrophils 18.3 10^3/uL (1.4-6.5); Hematocrit 36.3 % (37.0-47.0); Hemoglobin 13.3 g/dL (12.0-16.0); Mean Corp Hgb Conc. 36.6 g/dL (33.0-37.0); Mean Corpuscular Hgb 31.5 pg (27.0-31.0); Nucleated Red Blood Cells % 0 %; Platelet Count 302 10^3/uL (130-400); Red Blood Cell Count 4.22 10^6/uL (4.20-5.40); Red Cell Dist. Width 12.8 % (11.5-14.5)
[2023-07-23] MEDS: NSS 1000 IV ×2 (19:08→20:34)
[2023-07-23 19:21] LABS: ALT (SGPT) 31 U/L (0-35); AST (SGOT) 27 U/L (14-36); Albumin 4.6 g/dl (3.5-5.0); Alkaline Phosphatase 67 U/L (38-126); Blood Urea Nitrogen 9 mg/dl (7-17); Calcium 9.8 mg/dl (8.4-10.2); Carbon Dioxide 17 mmol/L (22-30); Chloride 104 mmol/L (98-107); Estimated Creatinine Clearance 119 ml/min; Glucose 131 mg/dl (70-99); Potassium 3.5 mmol/L (3.5-5.1); Sodium 133 mmol/L (135-145); Total Bilirubin 0.6 mg/dl (0.2-1.3); Total Protein 7.4 g/dl (6.3-8.2); eGFR > 60.00
--- NOTE | 2023-07-23 19:27 | ED.GENMED ---
History of Present Illness
General
Chief Complaint: Abdominal Symptoms
Source: patient
Exam Limitations: none
Time Seen by Provider: 07/23/23 18:53
Nursing documentation reviewed up to this point in time: agreed with
Travel History
Have you had any contact with someone who has COVID-19?: No
Do you have any symptoms of coronavirus? Fever > 100 degrees, chills, cough, shortness of breath, sore throat, loss of taste or smell, muscle aches, or headache?: No
History of Present Illness
History of Present Illness:
32-year-old female approximate 23 weeks history of hyperemesis presents to the ER for vomiting. Patient started vomiting again at 5 AM this morning and has vomited too numerous times to count. She has a history of hyperemesis and is being
closely followed by [facility]. She is on Unisom and she will use Phenergan suppositories. She in fact had a midline for fluids then electrolytes which was removed 8 days ago. She complains of a lot of anxiety with
vomiting feels very anxious now. She does report that she has had a dose of Ativan in the past because of this.
She denies any abdominal pain vaginal bleeding. She has had nml Ultrasound 06/29 which was normal.
Past History
Past History
ED Past Medical History: Other (Hyperemesis gravidarum)
Social History
Tobacco: Non-smoker
Review of Systems
Review of Systems
Allergies reviewed?: Yes
All Other Systems: ROS reviewed and negative except as documented in HPI and ROS
Constitutional: Reports no symptoms; Denies fever or fatigue
EENT: Reports no symptoms
Respiratory: Reports no symptoms
Cardiac: Reports no symptoms
ABD/GI: Reports nausea and vomiting; Denies abdominal pain
: Reports no symptoms and other (Denies any vaginal bleeding)
Skin: Reports no symptoms
Neurological: Reports no symptoms
Hematologic/Lymphatic: Reports no symptoms
Psychiatric: Reports no symptoms
Phy Exam
General Physical Exam
General Presentation: no apparent distress
General age: appears stated age
General Skin: warm and dry
General Habitus: normal
General Mental: alert
General Hydration: dry mucous membranes
Cardiovascular Exam
Cardiovascular Exam: tachycardia
Pulmonary Exam
Pulmonary Exam: lungs clear and no respiratory distress
Neurological Exam
Neurological Exam: alert and oriented x3
Musculoskeletal Exam
Musculoskeletal Exam: full ROM
Skin Exam
Skin Exam: normal color and warm/dry
Psychiatric Exam
Psychiatric Exam: normal mood/affect
Course
Orders/Labs/Results
Orders:
Orders
07/23/23 18:58
Complete Blood Count/With Diff Urgent
Comprehensive Metabolic Panel Urgent
07/23/23 19:08
0.9% Sodium Chloride 1000 ml [Nss] 1,000 ml IV BOLUS
07/23/23 19:52
Diphenhydramine [Benadryl] 25 mg IV NOW STA
Metoclopramide [Reglan] 10 mg IV NOW STA
07/23/23 19:53
Lorazepam [Ativan] 1 mg IV NOW STA
07/23/23 20:00
Heart Tones ONCE
07/23/23 20:33
0.9% Sodium Chloride 1000 ml [Nss] 1,000 ml IV BOLUS
Abnormal Lab Results
07/23/23
18:58
WBC 20.0 H 10^3/uL
(4.8-10.8)
Hct 36.3 L %
(37.0-47.0)
MCH 31.5 H pg
(27.0-31.0)
Abs Immat Gran (auto) 0.2 H 10^3/uL
(0-0.05)
Absolute Neuts (auto) 18.3 H 10^3/uL
(1.4-6.5)
Immature Gran % 0.8 H %
(0-0.5)
Neutrophils % 91.5 H %
(42.2-75.2)
Lymphocytes % 5.9 L %
(20.5-51.1)
Monocytes % 1.6 L %
(1.7-9.3)
Sodium 133 L mmol/L
(135-145)
Carbon Dioxide 17 L mmol/L
(22-30)
Creatinine 0.4 L mg/dL
(0.6-1.0)
Glucose 131 H mg/dl
(70-99)
07/23/23 18:58
07/23/23 18:58
Vital Signs
Initial and Last Documented VS:
Initial Vital Signs
Temp Pulse Resp BP Pulse Ox
98.8 F 113 20 128/90 98
07/23/23 18:31 07/23/23 18:31 07/23/23 18:31 07/23/23 18:31 07/23/23 18:31
Last Documented Vital Signs
Temp Pulse Resp BP Pulse Ox
98.8 F 112 20 108/66 97
07/23/23 18:31 07/23/23 22:38 07/23/23 18:31 07/23/23 22:38 07/23/23 22:38
Business Systems Analyst consulted with Physician
Business Systems Analyst consulted with physician?: Yes
Name of Physician Consulted: DR Irving
MDM/Problems Addressed
Differential Diagnosis Includes:
Not limited to hyperemesis, dehydration electrolyte abnormality
MDM/Problems Addressed:
Patient is a 23-week female with history of hyperemesis including hospitalization for this and recent midline with fluids presents to the ER with vomiting multiple times throughout the day unable to keep anything down not relieved at home
with her regular medication. Patient was given Reglan fluids along with Benadryl. She is very anxious and reports that she becomes anxious with vomiting and that is make her symptoms worse. She did ask for Ativan and was given Ativan here in the
ER with fluids. He was given a total of 2 L of fluids feeling much better able to tolerate matt jeanne heart tones obtained 160. No fever or chills white count elevated 20,000 has been elevated in the past likely from and vomiting,
normal potassium normal renal function .no complaints abdominal pain vaginal bleeding just looks much better than arrival. Will DC with outpatient [facility]NER follow-up.
Chronic conditions affecting care:
Hyperemesis
*Critical Care Note
Total Time (30-74mins, 75-104mins- exclusive of procedures): Not Applicable
ED Attending Note
-
Portions of this chart may have been created with voice recognition software.� Occasional wrong word or��sound alike� substitutions may have occurred due to the inherent limitations of voice recognition software.
Discharge Plan
Departure
Patient Disposition: Home (Routine Discharge)
Date of Disposition: 07/23/23
Time of Disposition: 23:31
Patient with high blood pressure during this ER visit?: No
Condition: Fair
Covid-19: Not Applicable
Discharge Problem:
Hyperemesis gravidarum
Instructions: Hyperemesis Gravidarum (DC)
Prescriptions:
No Action
diphenhydramine HCl [Benadryl] 25 mg Capsule
25 mg PO DAILYPRN PRN (Reason: ALLERGIES)
promethazine 25 mg suppository
25 mg [place] Q6HPRN PRN (Reason: nausea and vomiting)
Unisom (doxylamine) 25 mg Tablet
25 mg PO HS PRN (Reason: SLEEP)
sucralfate [Carafate] 100 mg/mL suspension
10 ml PO QID Qty: 400 0RF
sertraline 25 mg Tablet
25 mg PO DAILY Qty: 0 0RF
Referrals:
Shannan Fernandez CRNP [Family Provider] -
Activity Restrictions/Additional Instructions:
Continue to stay well-hydrated. Sip fluids slowly as tolerated. Follow-up with your [facility] USE PLANNER as needed and return if any worsening of symptoms.
Interventions
Interventions:
*Risk Screen - Suicide Last Done: 07/23/23 19:46
*Neglect/Abuse Screening Last Done: 07/23/23 19:46
*ED COVID-19 Vaccine History Last Done: 07/23/23 18:31
XD-[id number]-Hhbsfxiygw Assessment Last Done: 07/23/23 19:01
Discharge Date and Time
Print Language: KINYARWANDA
[2023-07-23] MEDS: REGLAN 10 MG IV (19:59)
[2023-07-23] MEDS: BENADRYL 25 MG IV (20:00)
[2023-07-23] MEDS: ATIVAN 1 MG IV (20:00)
[2023-07-23 22:38] VITALS: BP 108/66
[2023-07-23 23:43] VITALS: BP 119/69
== END 2023-07-24 | disposition home or self-care (01) ==
LOC: EMR 18:28
PROVIDERS: Nurse Practitioner; EMERGENCY PHYSICIAN Emergency Medicine; FAMILY PHYSICIAN Nurse Practitioner Adult Health
DX: O21.0 Mild hyperemesis gravidarum (principal); O99.342 Other mental disorders complicating pregnancy, second trimester; F41.9 Anxiety disorder, unspecified; Z3A.23 23 weeks gestation of pregnancy
CPT/HCPCS: 99284; 96374; 96375 ×2; 96361 ×2; 80053; 85025

== ENCOUNTER 2023-08-12 21:52 | Observation (INO) | payer OTHER, SELFPAY ==
[2023-08-12] MEDS: LR 1000 IV ×2 (22:15→23:41)
[2023-08-12 22:31] LABS: % Basophils 0.3 % (0-2); % Eosinophils 0.3 % (0-6); % Immature Granulocytes 0.8 % (0-0.5); % Lymphocytes 16.3 % (20.5-51.1); % Monocytes 7.6 % (1.7-9.3); % Neutrophils 74.7 % (42.2-75.2); Absolute Immature Granulocytes 0.1 10^3/uL (0-0.05); Absolute Lymphocytes 1.9 10^3/uL (1.2-3.4); Absolute Monocytes 0.9 10^3/uL (0.1-0.6); Absolute Neutrophils 8.8 10^3/uL (1.4-6.5); Hematocrit 30.2 % (37.0-47.0); Mean Corp Hgb Conc. 36.4 g/dL (33.0-37.0); Mean Corpuscular Hgb 30.8 pg (27.0-31.0); Mean Corpuscular Volume 84.6 fL (81.0-99.0); Mean Platelet Volume 9.2 fL (7.4-10.4); Nucleated Red Blood Cells % 0 %; Platelet Count 232 10^3/uL (130-400); Red Blood Cell Count 3.57 10^6/uL (4.20-5.40); White Blood Cell Count 11.7 10^3/uL (4.8-10.8)
[2023-08-12 22:37] VITALS: BMI 26.7
[2023-08-12 23:07] LABS: Urine Albumin Trace (Neg - Trace); Urine Bilirubin Negative (Negative); Urine Character Clear (Clear); Urine Color Yellow; Urine Glucose Negative (Negative); Urine Ketone 3+ (Negative); Urine Leukocyte 1+ (Negative); Urine Nitrite Negative (Negative); Urine Occult Blood Negative (Negative); Urine Urobilinogen Negative (Neg - 1+); Urine pH 6.5 (5.0-9.0)
[2023-08-12 23:14] VITALS: BP 122/68
[2023-08-12 23:33] LABS: Urine Squamous Cell >30 /LPF (Few)
[2023-08-12 23:34] LABS: Urine Red Blood Cell None Seen /HPF (0-2)
[2023-08-12 23:35] LABS: Urine Bacteria Moderate (Negative)
[2023-08-13] MEDS: REGLAN 10 MG IV (00:06)
[2023-08-13 00:12] LABS: ALT (SGPT) 21 U/L (0-35); AST (SGOT) 27 U/L (14-36); Albumin 3.9 g/dl (3.5-5.0); Alkaline Phosphatase 44 U/L (38-126); Blood Urea Nitrogen 7 mg/dl (7-17); Calcium 9.4 mg/dl (8.4-10.2); Carbon Dioxide 22 mmol/L (22-30); Chloride 101 mmol/L (98-107); Estimated Creatinine Clearance 119 ml/min; Glucose 90 mg/dl (70-99); Potassium 3.3 mmol/L (3.5-5.1); Sodium 131 mmol/L (135-145); Total Bilirubin 0.5 mg/dl (0.2-1.3); Total Protein 6.5 g/dl (6.3-8.2); eGFR > 60.00
[2023-08-13] MEDS: D5LR 1000 IV (01:45)
[2023-08-13] MEDS: ZOFRAN 4 MG IV ×3 (01:56→13:27)
[2023-08-13] MEDS: BENADRYL 50 MG PO (03:19)
[2023-08-13 08:02] LABS: ALT (SGPT) 19 U/L (0-35); AST (SGOT) 21 U/L (14-36); Albumin 3.8 g/dl (3.5-5.0); Alkaline Phosphatase 54 U/L (38-126); Blood Urea Nitrogen 6 mg/dl (7-17); Calcium 9.2 mg/dl (8.4-10.2); Carbon Dioxide 21 mmol/L (22-30); Chloride 103 mmol/L (98-107); Estimated Creatinine Clearance 119 ml/min; Glucose 142 mg/dl (70-99); Potassium 3.3 mmol/L (3.5-5.1); Sodium 134 mmol/L (135-145); Total Bilirubin 0.5 mg/dl (0.2-1.3); Total Protein 6.3 g/dl (6.3-8.2); eGFR > 60.00
[2023-08-13 08:03] LABS: Urine Albumin Trace (Neg - Trace); Urine Bilirubin Negative (Negative); Urine Character Clear (Clear); Urine Color Yellow; Urine Glucose 2+ (Negative); Urine Ketone 3+ (Negative); Urine Leukocyte Negative (Negative); Urine Nitrite Negative (Negative); Urine Occult Blood Negative (Negative); Urine Urobilinogen Negative (Neg - 1+); Urine pH 6.5 (5.0-9.0)
[2023-08-13] MEDS: KCL 1020 MEQ IV (08:48)
[2023-08-13] MEDS: KCL 1020 ML IV (08:48)
== END 2023-08-13 17:07 | disposition home or self-care (01) ==
LOC: LDRP 21:52
PROVIDERS: Obstetrics & Gynecology; ADMITTING PHYSICIAN Obstetrics & Gynecology; FAMILY PHYSICIAN Nurse Practitioner Adult Health
DX: O21.0 Mild hyperemesis gravidarum (principal); Z3A.26 26 weeks gestation of pregnancy; Z86.16 Personal history of COVID-19; E86.0 Dehydration
CPT/HCPCS: 80053; 81003; 81015; 85025; 87077; 87086; 87147; G0378

== ENCOUNTER → 2023-08-31 10:45 | Outpatient (REF) | payer OTHER, SELFPAY | LOC: PNTC 10:45 | PROVIDERS: ATTENDING PHYSICIAN Obstetrics & Gynecology | DX: O21.1 Hyperemesis gravidarum with metabolic disturbance (principal) | CPT/HCPCS: 76816 ==

== ENCOUNTER 2023-10-28 08:05 | Observation (INO) | payer OTHER, SELFPAY ==
[2023-10-28 08:07] VITALS: BP 120/67; BMI 28.4
[2023-10-28] MEDS: LR 1000 IV (08:30)
[2023-10-28] MEDS: BRETHINE 250 MCG SC (10:00)
== END 2023-10-28 11:24 | disposition home or self-care (01) ==
LOC: LDRP 08:05
PROVIDERS: ADMITTING PHYSICIAN Obstetrics & Gynecology
DX: O32.1XX0 Maternal care for breech presentation, not applicable or unspecified (principal); Z3A.37 37 weeks gestation of pregnancy; Z86.16 Personal history of COVID-19; O99.820 Streptococcus B carrier state complicating pregnancy
CPT/HCPCS: 59412; 36415; 86850; 86900; 86901; G0378

== ENCOUNTER 2023-11-15 05:32 | Inpatient (IN) | payer OTHER, SELFPAY ==
[2023-11-15 05:42] VITALS: BP 124/75; BMI 28.4
[2023-11-15] MEDS: LR 1000 IV (06:00)
[2023-11-15 06:16] LABS: Hematocrit 30.9 % (37.0-47.0); Hemoglobin 10.5 g/dL (12.0-16.0); Mean Corpuscular Hgb 27.3 pg (27.0-31.0); Mean Corpuscular Volume 80.5 fL (81.0-99.0); Mean Platelet Volume 11.2 fL (7.4-10.4); Platelet Count 214 10^3/uL (130-400); Red Blood Cell Count 3.84 10^6/uL (4.20-5.40); Red Cell Dist. Width 13.3 % (11.5-14.5); White Blood Cell Count 7.9 10^3/uL (4.8-10.8)
[2023-11-15] MEDS: ANCEF 10 IV (06:39)
[2023-11-15] MEDS: TYLENOL 1000 MG PO (06:39)
[2023-11-15] MEDS: BICITRA 30 ML PO (06:39)
[2023-11-15] MEDS: PITOCIN 30 UNITS/NSS 500 ML IV ×2 (08:52→12:43)
[2023-11-15] MEDS: TORADOL 15 MG IV ×2 (14:55→21:39)
[2023-11-15] MEDS: TYLENOL 650 MG PO (21:39)
[2023-11-16] MEDS: TORADOL 15 MG IV (03:22)
[2023-11-16 06:20] LABS: Hematocrit 27.3 % (37.0-47.0); Hemoglobin 9.1 g/dL (12.0-16.0); Mean Corp Hgb Conc. 33.3 g/dL (33.0-37.0); Mean Corpuscular Hgb 26.2 pg (27.0-31.0); Mean Corpuscular Volume 78.7 fL (81.0-99.0); Mean Platelet Volume 10.9 fL (7.4-10.4); Platelet Count 174 10^3/uL (130-400); Red Blood Cell Count 3.47 10^6/uL (4.20-5.40); Red Cell Dist. Width 13.7 % (11.5-14.5); White Blood Cell Count 12.4 10^3/uL (4.8-10.8)
[2023-11-16] MEDS: SENOKOT-S 1 TABLET PO (08:36)
[2023-11-16] MEDS: ZOLOFT 50 MG PO (08:36)
[2023-11-16] MEDS: PRENATAL PLUS 1 TABLET PO (08:36)
[2023-11-16] MEDS: TORADOL IV ×2 (08:37→10:08)
[2023-11-16] MEDS: MOTRIN 600 MG PO ×3 (10:07→23:58)
--- NOTE | 2023-11-16 14:21 | W.PN.ANS.POP ---
Anesthesia Post Operative
- Anesthesia Post Op Note
Vital Signs Stable-See Nursing Note: Yes
Airway Patent: Yes
Adequate Pain Control: Yes
Change in Mental Status: No
Current Postoperative Nausea & Vomiting: No
Anesthesia Complications: No
General Anesthetic Recall: No
Unplanned Admission: No
Post Op Hydration Adequate: Yes
[2023-11-16] MEDS: TYLENOL 650 MG PO (23:59)
[2023-11-17] MEDS: PRENATAL PLUS 1 TABLET PO (08:22)
[2023-11-17] MEDS: ZOLOFT 50 MG PO (08:29)
[2023-11-17] MEDS: FEOSOL 325 MG PO (08:29)
[2023-11-17] MEDS: MOTRIN 600 MG PO ×2 (08:30→14:42)
[2023-11-17] MEDS: SENOKOT-S 1 TABLET PO (08:30)
--- NOTE | 2023-11-17 11:56 | W.DS.TRANS ---
DC Summary - Safety And Skill Based Pay Manager
-
Discharge Instructions:
Discharge Diagnosis/Procedures delivered by csection
Diet Regular
Activity No strenuous activity
Driving Restrictions No driving for 2 weeks
Bathing Restrictions OK to Shower
Instructions:
Stand-Alone Forms: LDRP Delivery
Changes to Home Medications: No
Discharge Medications:
DC Medications w/original date entered in [facility]
Zoloft 50 mg PO DAILY Mental Health/Anxiety 10/28/23
vits no.130-ferrous fum 27 mg iron-folic acid 800 mcg tablet ( Vitamin) 1 tab PO DAILY Supplement 10/29/23
acetaminophen 325 mg tablet 650 mg (2 x 325 mg) PO Q4HPRN PRN mild pain #0 tabs 11/17/23
ferrous sulfate 325 mg (65 mg iron) tablet (FeroSul) 325 mg PO DAILY #0 tabs 11/17/23
ibuprofen 600 mg tablet 600 mg PO Q6HPRN PRN cramps #0 tabs 11/17/23
Home Medication Changes
Pending Results: No
Total time spent discharging patient (in min): 30
[2023-11-17] MEDS: TYLENOL 650 MG PO (14:42)
[2023-11-18 11:54] LABS: Syphilis/T. pallidum Ab Reflex Negative (Negative)
== END 2023-11-17 16:50 | disposition home or self-care (01) | DRG 788 ==
LOC: LDRP 05:32
PROVIDERS: Obstetrics & Gynecology; ADMITTING PHYSICIAN Obstetrics & Gynecology
PROC: 10D00Z1 Extraction of Products of Conception, Low, Open Approach (ICD-10-PCS; 2023-11-15)
DX: O32.8XX0 Maternal care for other malpresentation of fetus, not applicable or unspecified (principal); O99.62 Diseases of the digestive system complicating childbirth; O99.824 Streptococcus B carrier state complicating childbirth; O90.81 Anemia of the puerperium; K20.90 Esophagitis, unspecified without bleeding; Z37.0 Single live birth; Z3A.40 40 weeks gestation of pregnancy
CPT/HCPCS: 85027; 86780; 86850; 86900; 86901